=== PATIENT | male | born 1940 | race Caucasian/White ===

== ENCOUNTER 2023-05-03 07:00 | Outpatient (CLI) | payer OTHER, MEDICARE ==
--- NOTE | 2023-05-03 14:17 | XRAY Report ---
PROCEDURE: Chest 2V INDICATIONS: DYSPNEA TECHNIQUE: 2 views of the chest were acquired. COMPARISON: None. FINDINGS: Surgical changes and devices: None. Lungs and pleura: No pleural effusions or pneumothorax. Lungs are clear. Mediastinum: Mediastinal contours appear normal. Heart size is normal. Bones and chest wall: No suspicious bony lesions. Overlying soft tissues appear unremarkable. IMPRESSION: No acute cardiopulmonary process. Reviewed by: Mik Beck MD on 05/03/2023 2:16 PM PST Approved by: Mik Beck MD on 05/03/2023 2:16 PM PST Station ID: [id number]
== END 2023-05-03 23:59 | disposition home or self-care (01) ==
LOC: DI.S 07:00
PROVIDERS: ATTEND Emergency Medicine
DX: R06.00 Dyspnea, unspecified (principal)

== ENCOUNTER 2023-11-27 09:16 | Outpatient (CLI) | payer MEDICARE, OTHER ==
--- NOTE | 2023-11-27 09:23 | CARDIAC PROCEDURE NOTE ---
Stress Test Report Service Date: 11/27/23 Service Time: 09:30 Ordering Provider: Karson Paulson MD Indication for Test: Assess for cardiac ischemia in a patient with history of PVCs and non-sustained ventricular tachycardia (VT). Significant Medical History: Stuart is referred for a treadmill stress echocardiogram today to further evaluate his observed PVCs and non-sustained ventricular tachycardia. About a year ago he began experiencing the sensation of "skipped beats" at rest and with a low heart rate, though has noted that when physically active he does not experience the symptoms. He continues doing vigorous walking or jogging at least twice a week for an hour on routes that include hills. He denies experiencing unexpected shortness of breath, chest discomfort, nausea, vomiting or diaphoresis. He was evaluated by Dr. Paulson, which included a 7-day rhythm monitor that he reports showed frequent PVCs and up to 10 beat runs of non- sustained VT. He has never experienced lightheadedness, presyncope or syncope. Cardiac Risk Factors: Positive for history of hypertension (treated for ~25 yrs); negative for history of hyperlipidemia, diabetes and tobacco smoking. Although he reports that his fa ther had "heart failure" and strokes, and his mother had a pacemaker placed for slow heart rates, he does not believe that there is any family history of coronary heart disease. Pharmacologic Agent: Persantine Procedure: -Exercise Treadmill Test- After signing informed consent, the patient underwent echo imaging at rest and then performed treadmill exercise using a Lawrence protocol. The patient exercised for 8 minutes 58 seconds and achieved a peak heart rate of 129 (94 percent predicted maximum heart rate for age), and an estimated workload of 10.2 METS. The test was terminated due to fatigue/shortness of breath. Resting heart rate: 64 Peak heart rate: 129 Normal response to exercise. Resting BP: 129/59 Peak BP: 200/54 Borderline hypertensive BP response to exercise. Room air oxygen saturation during exercise ranged between 92-97% Rhythm during exercise: Sinus rhythm throughout, with zero PVCs recorded. Symptoms: He denied experiencing any chest pressure/discomfort/pain as well as any palpitations/lightheadedness. EKG at rest showed normal sinus rhythm, fully within normal limits. EKG at peak stress showed J-point depression with upsloping ST segments, NOT meeting EKG diagnostic criteria for ischemia. In Recovery HR and BP decreased rapidly/normally towards resting levels (HR 73, BP 155/65 at 7:00). Echo imaging, performed at rest and with stress, will be reported separately. IHai MD, was present throughout this treadmill stress study and supervised it in its entirety. Summary: 1) Exercise tolerance was well above average as evidenced by GABBIE of -43% (compared to normal 70 year old men). 2) Normal resting EKG. 3) Adequate level of exercise was achieved on this treadmill stress test. 4) Borderline hypertensive BP response to exercise. 5) No ischemic changes by EKG criteria were seen at peak stress. 6) Echo image interpretation reveals normal left ventricular size, wall thickness and systolic function, with appropriate hyperdynamic augmentation of all segments with exercise, indicating no evidence of prior infarct or inducible ischemia. No significant valvular abnormality or elevation of estimated pulmonary artery systolic pressure seen on screening study. See separate report for more details. Conclusions and Recommendations: 1) These are entirely reassuring treadmill stress echocardiogram results, with exercise time well above average for age, vigorous hemodynamic responses, no observed ectopy, no diagnostic ST depression and no evidence of hypokinesis on stress associated echo images. 2) The patient will follow-up with Dr. Paulson for any further evaluation deemed appropriate.
== END 2023-11-27 09:17 | disposition home or self-care (01) ==
LOC: DI 09:16
PROVIDERS: ATTEND Internal Medicine Cardiovascular Disease
DX: I47.29 Other ventricular tachycardia (principal); I10 Essential (primary) hypertension
CPT/HCPCS: 93350